=== PATIENT | female | born 1940 | race Hispanic/Latino ===

== ENCOUNTER 2019-04-07 19:45 | Emergency (ER) | payer OTHER ==
[2019-04-07] MEDS ORDERED: KETOROLAC TROMETHAMINE 30MG/ML ONE (20:46)
== END 2019-04-07 23:01 | disposition home or self-care (01) ==
LOC: EDH 19:45
DX: S33.5XXA Sprain of ligaments of lumbar spine, initial encounter (principal); E03.9 Hypothyroidism, unspecified; E11.9 Type 2 diabetes mellitus without complications; M81.0 Age-related osteoporosis without current pathological fracture; Z90.710 Acquired absence of both cervix and uterus; Z88.8 Allergy status to other drugs, medicaments and biological substances; W18.2XXA Fall in (into) shower or empty bathtub, initial encounter; Y93.89 Activity, other specified; Y92.89 Other specified places as the place of occurrence of the external cause; Y99.8 Other external cause status
CPT/HCPCS: 70450; 71045; 72125; 72170; 96372; 99284; J1885